=== PATIENT | female | born 1975 | race Two or more races ===

== ENCOUNTER → 2017-07-03 | Outpatient (CLI) | payer OTHER | LOC: CIMAGING 08:12 | PROVIDERS: ATTEND Internal Medicine Endocrinology, Diabetes & Metabolism | DX: Z08 Encounter for follow-up examination after completed treatment for malignant neoplasm (principal); Z85.850 Personal history of malignant neoplasm of thyroid; I89.9 Noninfective disorder of lymphatic vessels and lymph nodes, unspecified | CPT/HCPCS: 76536-PO ==

== ENCOUNTER → 2018-06-29 | Outpatient (CLI) | payer OTHER | END | disposition home or self-care (01) | LOC: CIMAGING 08:56 | PROVIDERS: ATTEND Internal Medicine Endocrinology, Diabetes & Metabolism | DX: Z08 Encounter for follow-up examination after completed treatment for malignant neoplasm (principal); Z85.850 Personal history of malignant neoplasm of thyroid; E89.0 Postprocedural hypothyroidism | CPT/HCPCS: 76536-PO ==